=== PATIENT | female | born 1970 | race Caucasian/White ===

== ENCOUNTER 2025-04-18 12:23 | Emergency (ER) | payer MEDICAID ==
[~2025-04-18] VITALS: Ht 162.6 cm; Wt 55.0 kg
[2025-04-18 12:25] VITALS: TEMP 98; O2SAT 98
[2025-04-18] MEDS: TETRACAINE 0.5% OPHTH DROPS 4ML BOTHEYE ONE (13:00)
[2025-04-18] MEDS: FLUORESCEIN SODIUM 1MG/STRIP BOTHEYE ONE (13:00)
[2025-04-18] MEDS: HYDROCODONE/ACETAMINOPHEN 5/325MG TABLET PO ONE (13:22)
[2025-04-18 13:37] LABS: BASOPHILS % 0.5 % (0.0-2.0); EOSINOPHILS % 0.7 % (0.0-5.0); HEMATOCRIT. 43.2 % (36.0-48.0); HEMOGLOBIN. 14.3 g/dL (12.0-16.0); LYMPHOCYTES % 24.5 % (20.0-50.0); MEAN PLATELET VOLUME 7.5 fl (7.4-10.4); MONOCYTES % 7.3 % (2.0-8.0); NEUTROPHILS % 67.0 % (40.0-76.0); PLATELET 352 x1000/uL (130-400); RED BLOOD CELL COUNT 5.09 mill/uL (4.2-5.4); RED CELL DISTRIBUTION WIDTH 14.7 % (11.6-14.6)
[2025-04-18 13:49] LABS: CREATININE 0.7 mg/dL (0.6-1.0); UREA NITROGEN BLOOD 7 mg/dL (9-23)
[2025-04-18 13:50] LABS: PROTEIN TOTAL 7.1 g/dL (6.0-8.3)
[2025-04-18 13:51] LABS: ASPARTATE AMINOTRANSFERASE 23 IU/L (<34)
[2025-04-18 13:52] LABS: BILIRUBIN DIRECT 0.2 mg/dL (<=3.0); BILIRUBIN TOTAL 0.6 mg/dL (0.1-1.0)
[2025-04-18 14:02] LABS: TROPONIN I HIGH SENSITIVITY 27 ng/L (3.0-34)
[2025-04-18] MEDS: FLUORESCEIN SODIUM 1MG/STRIP RIGHTEYE ONE (16:08)
[2025-04-18] MEDS ORDERED: HYDR-4001 MT (16:19)
[2025-04-18] MEDS ORDERED: CIPR2.5D17 EACHEYE (16:19)
[2025-04-18 16:57] LABS: TROPONIN I HIGH SENSITIVITY 24 ng/L (3.0-34)
[2025-04-18] MEDS: AMOXICILLIN/POTASSIUM CLAVULANATE 875/125MG TAB PO ONE (17:43)
[2025-04-18] MEDS: ONDANSETRON 4MG ODT PO ONE (17:43)
[2025-04-18] MEDS ORDERED: AMOX1TAB16 MT (17:50)
[2025-04-18] MEDS ORDERED: ONDA-239 SL (17:50)
[2025-04-18] MEDS: CIPROFLOXACIN 0.3% OPHTH SOLN 2.5ML BOTHEYE ONE (18:09)
[2025-04-18 18:42] VITALS: BP 128/59; PULSE 92; RESP 18; O2SAT 100
== END 2025-04-18 18:45 | disposition home or self-care (01) ==
LOC: ER 12:23
DX: H16.002 Unspecified corneal ulcer, left eye (principal); J32.9 Chronic sinusitis, unspecified; R07.89 Other chest pain; R11.0 Nausea; I95.9 Hypotension, unspecified; Z79.899 Other long term (current) drug therapy; Z88.2 Allergy status to sulfonamides; Z98.84 Bariatric surgery status
CPT/HCPCS: 99285; 71045; 86592; 80076; 80048; 85025; 84484; 71101; 93005; 36415; Q0162